=== PATIENT | male | born 1950 | race Caucasian/White ===

== ENCOUNTER 2019-01-29 06:57 | Day surgery (SDC) | payer MEDICARE ==
[2019-01-26 09:23] LABS: PARTIAL THROMBOPLASTIN TIME 27 SECONDS (22-32)
[2019-01-26 09:25] LABS: ALBUMIN 3.7 G/DL (3.4-5.0); ANION GAP 6 (8-16); BLOOD UREA NITROGEN 11 MG/DL (7-18); BUN/CREATININE RATIO 11.6 (5.4-32.0); CALCIUM 8.5 MG/DL (8.5-10.1); CHLORIDE 105 MMOL/L (99-107); CREATININE 0.95 MG/DL (0.60-1.10); GLUCOSE 192 MG/DL (70-104); POTASSIUM 4.5 MMOL/L (3.5-5.1); SODIUM 141 MMOL/L (135-145); TOTAL CARBON DIOXIDE 30.1 MMOL/L (24-32); eGFR 78 ML/MIN
[2019-01-26 09:31] LABS: BASOPHILS % (AUTO) 0.8 % (0-1); EOSINOPHILS # (AUTO) 0.1 X10'3 (0-0.9); EOSINOPHILS % (AUTO) 2.4 % (0-6); HEMATOCRIT 43.2 % (42.0-52.0); HEMOGLOBIN 14.6 g/dl (14.0-17.9); LYMPHOCYTES # (AUTO) 1.1 X10'3 (1.1-4.8); LYMPHOCYTES % (AUTO) 24.1 % (21-51); MEAN CORPUSCULAR HEMOGLOBIN 30.1 PG (27.0-31.0); MEAN CORPUSCULAR HGB CONC 33.9 g/dL (33.0-36.5); MEAN CORPUSCULAR VOLUME 88.8 FL (78-98); MONOCYTES # (AUTO) 0.4 X10'3 (0-0.9); MONOCYTES % (AUTO) 9.9 % (2-12); NEUTROPHILS # (AUTO) 2.8 X10'3 (1.8-7.7); NEUTROPHILS % (AUTO) 62.8 % (42-75); PLATELET COUNT 210 X10'3 (140-440); RED BLOOD COUNT 4.87 X10'6 (4.70-6.10); RED CELL DISTRIBUTION WIDTH 13.4 % (11.5-14.5); WHITE BLOOD COUNT 4.4 X10'3 (4.5-11.0)
[2019-01-29] VITALS (9 sets, daily range): BP systolic 115–177; BP diastolic 62–90
[~2019-01-29] VITALS: Ht 157.5 cm; Wt 81.6 kg
[~2019-01-29 06:57] MED LIST: ASPI-611 PO; ATEN-169 PO; ATOR20TA PO; CALC-815 PO; METF500T20 PO; MULT-342 PO; OMEG-166 PO
[2019-01-29] MEDS ORDERED: normal saline 1,000 ML IV SCH ×2 (07:15→11:45)
[2019-01-29] MEDS ORDERED: diphenhydrAMINE 25mg capsule PO PRN (07:15)
[2019-01-29] MEDS ORDERED: LORazepam 0.5 MG tablet PO PRN (07:15)
[2019-01-29] MEDS ORDERED: LISI-600 PO (07:20)
[2019-01-29] MEDS ORDERED: fentaNYL/PF 50MCG/1 ML 2ML syringe ONE (08:34)
[2019-01-29] MEDS ORDERED: midazolam 2 mg/2 ml injection ONE (08:34)
[2019-01-29] MEDS ORDERED: LIDOcaine 1% (10mg/ml)w/preservative injection 20ml MDV ONE (08:34)
[2019-01-29] MEDS ORDERED: heparin 1,000unit/ml 10ml vial 10 ML ONE (08:34)
[2019-01-29] MEDS ORDERED: iohexol 350MG/ML 100ml bottle IV ONE (08:35)
[2019-01-29] MEDS ORDERED: nitroGLYCERIN-Tridil 50MG/D5W 250 ML IV ONE (08:35)
[2019-01-29] MEDS ORDERED: iohexol 350 MG/ML 50ML vial IV ONE ×2 (08:35→10:36)
== END 2019-01-29 14:00 | disposition home or self-care (01) ==
LOC: SSTAY O 06:57
PROVIDERS: ATTEND Internal Medicine Cardiovascular Disease
DX: R94.39 Abnormal result of other cardiovascular function study (principal); I25.10 Atherosclerotic heart disease of native coronary artery without angina pectoris; I10 Essential (primary) hypertension; E78.5 Hyperlipidemia, unspecified; I47.1 Supraventricular tachycardia; E11.9 Type 2 diabetes mellitus without complications; Z95.1 Presence of aortocoronary bypass graft; Z86.73 Personal history of transient ischemic attack (TIA), and cerebral infarction without residual deficits; Z79.84 Long term (current) use of oral hypoglycemic drugs; Z79.82 Long term (current) use of aspirin; Z79.899 Other long term (current) drug therapy
CPT/HCPCS: 36415; 80048; 85025; 85610; 85730; 93005; 93459; 99152; 99153; C1769; J1644; J2001; J2250; J3010; J7030; Q0163; Q9967; A4620; A6258; C1760; J3490

== ENCOUNTER 2022-06-25 06:12 | Day surgery (SDC) | payer MEDICARE ==
[2022-06-24 09:46] LABS: BASOPHILS % (AUTO) 0.7 % (0-1); EOSINOPHILS % (AUTO) 0.8 % (0-6); HEMATOCRIT 41.2 % (42.0-52.0); HEMOGLOBIN 13.9 g/dl (14.0-17.9); LYMPHOCYTES # (AUTO) 0.9 X10'3 (1.1-4.8); LYMPHOCYTES % (AUTO) 14.9 % (21-51); MEAN CORPUSCULAR HEMOGLOBIN 29.3 PG (27.0-31.0); MEAN CORPUSCULAR HGB CONC 33.8 g/dL (33.0-36.5); MEAN CORPUSCULAR VOLUME 86.7 FL (78-98); MEAN PLATELET VOLUME 8.5 FL (7.4-10.4); MONOCYTES # (AUTO) 0.5 X10'3 (0-0.9); MONOCYTES % (AUTO) 9.1 % (2-12); NEUTROPHILS # (AUTO) 4.3 X10'3 (1.8-7.7); NEUTROPHILS % (AUTO) 74.5 % (42-75); PLATELET COUNT 212 X10'3 (140-440); RED BLOOD COUNT 4.75 X10'6 (4.70-6.10); RED CELL DISTRIBUTION WIDTH 13.6 % (11.5-14.5); WHITE BLOOD COUNT 5.7 X10'3 (4.5-11.0)
[2022-06-24 10:07] LABS: APTT 27 SECONDS (22-32)
[2022-06-24 10:08] LABS: ALBUMIN 3.8 G/DL (3.4-5.0); ANION GAP 8 (8-16); BLOOD UREA NITROGEN 21 MG/DL (7-18); BUN/CREATININE RATIO 16.8 (10.0-20.0); CALCIUM 8.8 MG/DL (8.5-10.1); CHLORIDE 102 MMOL/L (99-107); CREATININE 1.25 MG/DL (0.60-1.10); GLUCOSE 288 MG/DL (70-104); POTASSIUM 4.5 MMOL/L (3.5-5.1); SODIUM 137 MMOL/L (135-145); TOTAL CARBON DIOXIDE 27.4 MMOL/L (24-32); eGFR 57 ML/MIN
[~2022-06-25] VITALS: Ht 162.6 cm; Wt 77.9 kg
[2022-06-25] VITALS (13 sets, daily range): BP systolic 122–205; BP diastolic 47–100
[~2022-06-25 06:12] MED LIST changes: +LISI20TA28 PO; +METF-900 PO; -METF500T20 PO
[2022-06-25] MEDS ORDERED: LORazepam 0.5 MG tablet PO PRN (06:25)
[2022-06-25] MEDS ORDERED: normal saline 1,000 ML IV SCH (06:25)
[2022-06-25] MEDS ORDERED: diphenhydrAMINE 25mg capsule PO PRN (06:25)
[2022-06-25] MEDS ORDERED: midazolam 1 mg/ML 2ml injection ONE (07:27)
[2022-06-25] MEDS ORDERED: LIDOcaine 1% 30ml preserv. free vial ONE (07:27)
[2022-06-25] MEDS ORDERED: fentaNYL/PF 50MCG/1 ML 2ML syringe ONE (07:27)
[2022-06-25] MEDS ORDERED: iohexol 350 MG/ML 50ML vial IV ONE (07:27)
[2022-06-25] MEDS ORDERED: iohexol 350MG/ML 100ml bottle IV ONE ×3 (07:28→09:19)
[2022-06-25] MEDS ORDERED: FURO40TA4 PO (07:34)
[2022-06-25] MEDS ORDERED: CALC-1151 PO (07:34)
[2022-06-25] MEDS ORDERED: POTA-197 PO (07:34)
[2022-06-25] MEDS ORDERED: MAGN200T5 PO (07:34)
[2022-06-25] MEDS ORDERED: heparin 1,000unit/ml 10ml vial 10 ML ONE (08:05)
[2022-06-25] MEDS ORDERED: verapamil 2.5 mg/ml inj IV ONE (08:05)
[2022-06-25] MEDS ORDERED: nitroGLYCERIN-Tridil 50MG/D5W 250 ML IV ONE (08:05)
[2022-06-25] MEDS ORDERED: atropine 0.1mg/ml 10ml syringe ONE (08:28)
[2022-06-25] MEDS ORDERED: heparin 25,000 UNIT/250ml bag 250 ML IV ONE (08:57)
[2022-06-25] MEDS ORDERED: clopidogrel 300mg tablet ONE (09:44)
[2022-06-25 10:18] LABS: ISTAT HGB ART 12.9 g/dl (14.0-17.9); ISTAT Hct ART 38 %PCV (42-52); ISTAT O2 SATURATION ARTERIAL 92 % (95-98); ISTAT SOURCE ART
[2022-06-25] MEDS ORDERED: furosemide 20 MG/2 ML vial IV ONE (11:15)
[2022-06-25] MEDS ORDERED: normal saline 1000ml 1,000 ML IV SCH (11:20)
[2022-06-25] MEDS ORDERED: ACETYLCYSTEINE 200 MG/1 ML 4 ML ORAL SOLUTION PO SCH (11:25)
[2022-06-26] MEDS ORDERED: clopidogrel 75mg tablet PO SCH (08:00)
[2022-06-28 07:10] LABS: ISTAT Hct MIX 38 %PCV (42-52); ISTAT O2 SATURATION MIX VENOUS 65 % (60-80); ISTAT SOURCE VEN
== END 2022-06-25 15:55 | disposition home or self-care (01) ==
LOC: SSTAY O 06:12
PROVIDERS: ATTEND Internal Medicine Cardiovascular Disease
DX: R94.39 Abnormal result of other cardiovascular function study (principal); I25.10 Atherosclerotic heart disease of native coronary artery without angina pectoris; I10 Essential (primary) hypertension; E78.5 Hyperlipidemia, unspecified; E11.9 Type 2 diabetes mellitus without complications; Z86.73 Personal history of transient ischemic attack (TIA), and cerebral infarction without residual deficits; Z95.1 Presence of aortocoronary bypass graft; Z79.84 Long term (current) use of oral hypoglycemic drugs; Z79.899 Other long term (current) drug therapy; Z79.01 Long term (current) use of anticoagulants; Z80.0 Family history of malignant neoplasm of digestive organs; Z81.1 Family history of alcohol abuse and dependence
CPT/HCPCS: 36415; 76937; 80048; 82803; 82948; 85014; 85025; 85347; 85610; 85730; 93005; 93461; 99152; 99153; A6258; C1725; C1751; C1769; C1874; C9600; J0461; J1644; J1940; J2250; J3010; J3490; J7030; Q0163; Q9967; A6402; C1894